=== PATIENT | male | born 1995 | race Caucasian/White ===

== ENCOUNTER 2021-08-04 08:36 | Emergency (ER) | payer OTHER ==
[~2021-08-04] VITALS: Ht 177.8 cm; Wt 70.4 kg
[2021-08-04 08:40] VITALS: BP 139/94
--- NOTE | 2021-08-04 08:54 | ED Upper Extremity ---
General Chief Complaint: Upper Extremity Stated Complaint: WC RT HAND INJ Source: patient Exam Limitations: no limitations History of Present Illness Date Seen by Provider: Aug 04, 2021 Time Seen by Provider: 08:40 Initial Comments 25-year-old male with no significant past medical history that is right-hand dominant coming in after a work injury. His right ring finger and pinky finger were crushed in a roller at work just prior to arrival. He is having severe constant throbbing and sharp pain to those digits. Worse with movement and better with rest. Tetanus updated 3 years ago. Did not hit his head, pass out, or have any other issues. Allergies and Home Medications Allergies Coded Allergies: No Known Drug Allergies (Unverified , 08/04/21) Patient Home Medication List Home Medication List Reviewed: Yes Cephalexin (Cephalexin) 500 Mg Capsule, 500 MG PO Q6H Prescribed by: ANDRAE TIMMONS on 08/04/21 1007 Oxycodone HCl/Acetaminophen (Oxycodone-Acetaminophen 5-325) 1 Each Tablet, 1 EACH PO Q6H PRN for PAIN-MODERATE Prescribed by: ANDRAE TIMMONS on 08/04/21 1008 Review of Systems Constitutional: No fever EENTM: no symptoms reported Respiratory: No cough Cardiovascular: No chest pain Gastrointestinal: No nausea Genitourinary: no symptoms reported Musculoskeletal: joint pain Skin: No rash Psychiatric/Neurological: No Symptoms Reported All Other Systems Reviewed Negative Unless Noted: Yes Past [id number]-Ikpssq Hx Patient Social History Tobacco Use?: No Use of E-Cig and/or Vaping dev: No Substance use?: No Alcohol Use?: No Pt feels they are or have been: No Past Medical History Surgeries: No Physical Exam Vital Signs Vital Signs - First Documented 08/04/21 08:40 Temp 36.3 Pulse 85 Resp 18 B/P (MAP) 139/94 (109) Pulse Ox 99 O2 Delivery Room Air Capillary Refill : Height, Weight, BMI Height: '" Weight: lbs. oz. kg; BMI Method: General Appearance: WD/WN, moderate distress HEENT: PERRL/EOMI, normal ENT inspection, pharynx normal Neck: non-tender, full range of motion, supple, normal inspection Cardiovascular: regular rate, rhythm, no edema, no murmur Respiratory: chest non-tender, lungs clear, normal breath sounds, no respiratory distress, no accessory muscle use Gastrointestinal: normal bowel sounds, non tender, soft; No distended, No guarding, No rebound Back: normal inspection, no CVA tenderness, no vertebral tenderness Shoulder: normal inspection Elbow/Forearm: normal inspection Wrist: Yes normal inspection, Yes non-tender, Yes no evidence of injury, Yes normal ROM Hand: Right, bone tenderness, deformity, laceration (Right ring finger with crush injury to the distal aspect and small injury to the distal pinky as well that is less apparent), nail injury Neurologic/Tendon: other (Decreased sensation to the distal aspect of the ring finger and pinky finger on the right, able to flex and extend the digits, however exam is very limited due to severe pain) Neurologic/Psychiatric: no motor/sensory deficits, alert, normal mood/affect, oriented x 3 Skin: normal color, warm/dry Lymphatic: no adenopathy Procedures/Interventions Wound Location: Upper Extremities Wound Length (cm): 2.5 Wound's Depth, Shape: stellate, nail-avulsed Wound Explored: clean Irrigated w/ Saline (ccs): 1000 Betadine Prep?: Yes Anesthesia: 1% Lidocaine Volume Anesthetic (ccs): 10 Wound Debrided: minimal Suture: Ethlion Suture Size: 5-0 Number of Sutures: 8 Progress Crush injury to right ring finger with avulsed nail. It was extensively cleaned, and a portion of the wound was closed with 3 sutures of 5-0 Ethilon. Nailbed was lacerated was closed with 5-0 fast absorbing gut as well as some 5-0 fast absorbing gut was used on the finger. Afterwards it was splinted given the tuft fracture. Additional Procedures: Digital Block Progress 5 cc of 1% lidocaine were used for a digital block after cleansing the right ring finger with near complete anesthesia achieved, same procedure then performed on the right pinky finger. Patient tolerated procedure well. Prior to the procedure, he did have some numbness to the distal fingertips already. Progress/Results/Core Measures Results/Orders My Orders Orders - ANDRAE TIMMONS MD Hand 3 View Right (08/04/21 08:54) Cefazolin Injection (Ancef Injection) (08/04/21 09:00) Medications Given in ED Current Medications Medications Dose Ordered Sig/King Route Start Time Stop Time Status Last Admin Dose Admin Cefazolin Sodium 1000 mg/Sterile Water 10 ml @ 200 mls/hr ONCE ONCE IV 08/04/21 09:00 08/04/21 09:02 DC 08/04/21 09:09 200 MLS/HR Vital Signs/I&O 08/04/21 08:40 Temp 36.3 Pulse 85 Resp 18 B/P (MAP) 139/94 (109) Pulse Ox 99 O2 Delivery Room Air Progress Progress Note : Progress Note 25-year-old male with above history coming in after a finger crush injury. ABCs were intact and vitals were stable on presentation. The patient was in severe pain screaming on arrival. Brief physical exam showing some numbness to the distal aspects of his right ring finger and pinky finger with range of motion difficult to assess due to pain. Digital blocks were performed of the ring finger and pinky finger. Pain significantly improved. Tetanus is updated. Wound was cleaned extensively and then closed. The nail was essentially fully avulsed, and I barely touched it and it fell off on the ring finger. Closed the wound with a mix of Ethilon and fast-absorbing suture. Splinted it afterwards. Give him IV antibiotics on arrival because I was concerned for open fracture. There is a tuft fracture on x-ray on my interpretation. He will need to follow- up with a hand surgeon within the next couple days. He was then discharged home in stable condition with strict return precautions. Departure Impression Primary Impression: Crushed finger Qualified Codes: S67.10XA - Crushing injury of unspecified finger(s), initial encounter Additional Impressions: Phalanx, distal fracture of finger Qualified Codes: S62.664B - Nondisplaced fracture of distal phalanx of right ring finger, initial encounter for open fracture Finger laceration Qualified Codes: S61.314A - Laceration without foreign body of right ring finger with damage to nail, initial encounter Fingernail avulsion Qualified Codes: S61.309A - Unspecified open wound of unspecified finger wit h damage to nail, initial encounter Disposition: HOME, SELF-CARE Condition: Stable Departure-Patient Inst. Decision time for Depature: 10:04 Referrals: NO,LOCAL PHYSICIAN (PCP/Family) Primary Care Physician Patient Instructions: Laceration Repair With Stitches ED, Nail Avulsion, Crush Injury Add. Discharge Instructions: You were seen in the emergency department after a crush the fingers on your right hand. He do have a broken bone specifically on the far portion of your right ring finger. Keep the splints on your fingers. If you have any redness, drainage like pus, fever, or any other concerns then come back to the ER. Please call the hand surgeon to follow-up within the next couple of days. Take 600 mg of ibuprofen every 6 hours for pain as well as 500 mg of Tylenol every 8 hours for pain. If you have worsening pain on top of that and you can take the prescription oxycodone. Also take the antibiotic for the next week. The hand surgeon you can follow up with at is Dr. Evans. His office number is [phone]. Call and say you are a worker's comp patient for a hand crush injury. They may schedule you with him or another doctor. All discharge instructions reviewed with patient and/or family. Voiced understanding. Scripts Oxycodone HCl/Acetaminophen (Oxycodone-Acetaminophen 5-325) 1 Each Tablet 1 EACH PO Q6H PRN for PAIN-MODERATE MDD 6 for 3 Days, #12 TAB 0 Refills Prov: ANDRAE TIMMONS MD 08/04/21 Cephalexin (Cephalexin) 500 Mg Capsule 500 MG PO Q6H for 7 Days, #28 CAP 0 Refills Prov: ANDRAE TIMMONS MD 08/04/21 Work/School Note: Work Release Form Date Seen in the Emergency Department: Aug 04, 2021 Return to Work: Aug 10, 2021 Restrictions: Need Release from Doctor Other Restrictions Listed Below: Needs hand surgeon release. ANDRAE TIMMONS MD Aug 04, 2021 08:54
[2021-08-04] MEDS ORDERED: ceFAZolin INJECTION 1,000 MG in WATER (STERILE) FOR INJECTION 10 ML IV ONE (09:00)
--- NOTE | 2021-08-04 09:13 | Diagnostic Imaging Report ---
INDICATION: Crush injury to right hand, pain TECHNIQUE: 4 views of the right hand. CORRELATION STUDY: None FINDINGS: Soft tissue defect over the tip of the ring finger. There is a slightly comminuted but predominantly obliquely oriented fracture off the distal tuft. There is just under 2 mm of diastases along the major fracture line. Remaining osseous structures otherwise unremarkable. IMPRESSION: 1. Prominent soft tissue defect and obliquely oriented mildly displaced fracture involving the tip of the ring finger. Dictated by: Dictated on workstation # [id number]
[2021-08-04] MEDS ORDERED: CEPH500C PO (10:07)
[2021-08-04] MEDS ORDERED: OXYC1TAB11 PO (10:07)
[2021-08-04] MEDS ORDERED: KETOROLAC 30 MG/ML VIAL IVP ONE (10:30)
== END 2021-08-04 10:50 | disposition home or self-care (01) ==
LOC: ER FS 08:39
DX: S67.194A Crushing injury of right ring finger, initial encounter (principal); S62.634A Displaced fracture of distal phalanx of right ring finger, initial encounter for closed fracture; S61.314A Laceration without foreign body of right ring finger with damage to nail, initial encounter; W23.0XXA Caught, crushed, jammed, or pinched between moving objects, initial encounter; Y99.0 Civilian activity done for income or pay
CPT/HCPCS: 64450; 73130